=== PATIENT | female | born 1960 | race Caucasian/White ===

== ENCOUNTER 2016-08-23 13:51 | Emergency (ER) | payer OTHER ==
[~2016-08-23] VITALS: Ht 177.8 cm; Wt 117.9 kg
[~2016-08-23 13:51] MED LIST: ANUSOL HC,ANUCO25 MG PR; ATIVAN1 MG PO; Aspirin E.C. PO; BENTYL20 MG PO; BUSPAR10 MG PO; CIPRO500 MG PO; CLONAZEPAM0.5 MG PO; COLACE100 MG PO; FENOFIBRATE160 M1 PO; FLAGYL500 MG PO; HYDROXYZINE PAM25 MG PO; KEFLEX500 MG PO; KLONOPIN1 MG PO; NAPROSYN500 MG PO; NORCO 7.5/321 TABLET PO; OMEPRAZOLE40 M1 PO; PERCOCET 5/31 TABLET PO; PRAVASTATIN SOD40 MG PO; PRAZOSIN HCL2 MG PO; SERTRALINE HCL100 MG PO; SINEQUAN50 MG PO; TRAMADOL HCL50 MG PO; VALIUM5 MG PO; XANAX0.5 MG PO; XANAX1 MG PO; ZOLOFT100 MG PO
[2016-08-23 17:16] LABS: HEMATOCRIT 49.9 % (36.0-46.0); MCH 29.2 PG (29.0-34.0); MCHC 33.3 G/DL (30.0-36.0); MCV 87.7 FL (83-99); MEAN PLAT.VOLUME 10.9 uM^3 (9.5-12.4); PLATELET COUNT 310 K/uL (156-360); RBC DIS.WIDTH-SD 41.7 % (39-53); RED BLOOD COUNT 5.69 M/uL (3.80-5.20)
[2016-08-23 17:25] LABS: CHLORIDE 103 mEq/L (99-109); POTASSIUM 4.7 mEq/L (3.7-5.4); SODIUM 139 mEq/L (136-147)
[2016-08-23 17:27] LABS: GLUCOSE 90 mg/dL (70-99)
[2016-08-23 17:29] LABS: ANION GAP 11 MEQ/L (2-14); TOTAL BILIRUBIN 0.5 mg/dL (0.0-1.0)
[2016-08-23 17:31] LABS: ALKALINE PHOSPHATASE 94 IU/L (3-129); GFR ESTIMATE (CALCULATED) > 59 mL/min/
[2016-08-23 17:32] LABS: UREA NITROGEN (BUN) 19 mg/dL (9-23)
[2016-08-23 17:34] LABS: LIPASE 25 U/L (1.0-51.0)
[2016-08-23 17:38] LABS: TROP-I INTERPRETATION NEGATIVE; TROPONIN-I < 0.01 ng/mL (0.0-0.30)
[2016-08-23] MEDS ORDERED: ATIVAN0.5 MG PO (18:33)
[2016-08-23] MEDS ORDERED: ATARAX,VISTARIL25 MG PO (18:33)
[2016-08-23] MEDS ORDERED: ZANTAC300 MG PO (18:33)
[2016-08-23 18:47] VITALS: BP 140/98
== END 2016-08-23 18:51 | disposition home or self-care (01) ==
LOC: EME 13:51
PROVIDERS: Physician Assistant
DX: R10.13 Epigastric pain (principal); F41.9 Anxiety disorder, unspecified; F17.200 Nicotine dependence, unspecified, uncomplicated; K21.9 Gastro-esophageal reflux disease without esophagitis
CPT/HCPCS: 71020; 80053; 83690; 84484; 85027; 93005; 99281; 99283; Q0177

== ENCOUNTER → 2017-04-12 | Outpatient (CLI) | payer OTHER ==
[~2017-04-12] VITALS: Ht 176.5 cm; Wt 114.3 kg
[~2017-04-12] MED LIST changes: +ATARAX,VISTARIL25 MG PO; +ATIVAN0.5 MG PO; +BRINTELLIX10 MG PO; +MAXALT5 MG PO; +PROTONIX40 MG PO; +ZANTAC300 MG PO; +ZOFRAN8 MG PO
== END | disposition home or self-care (01) ==
LOC: AMB 10:56
PROC: 0DB68ZX Excision of Stomach, Via Natural or Artificial Opening Endoscopic, Diagnostic (ICD-10-PCS; principal; 2017-04-12)
DX: K29.70 Gastritis, unspecified, without bleeding (principal); G89.29 Other chronic pain; R10.13 Epigastric pain; M54.5 Low back pain; F17.200 Nicotine dependence, unspecified, uncomplicated; E78.2 Mixed hyperlipidemia; E66.9 Obesity, unspecified; Z68.37 Body mass index [BMI] 37.0-37.9, adult; Z80.3 Family history of malignant neoplasm of breast; Z82.61 Family history of arthritis; Z80.1 Family history of malignant neoplasm of trachea, bronchus and lung; Z82.0 Family history of epilepsy and other diseases of the nervous system
CPT/HCPCS: 88305; 88342 TC; J2250

== ENCOUNTER → 2017-07-26 | Outpatient (CLI) | payer OTHER ==
[~2017-07-26] VITALS: Ht 176.5 cm; Wt 112.9 kg
== END | disposition home or self-care (01) ==
LOC: AMB 10:20
PROC: 0DBL8ZX Excision of Transverse Colon, Via Natural or Artificial Opening Endoscopic, Diagnostic (ICD-10-PCS; principal; 2017-07-26)
PROC: 0DJ08ZZ Inspection of Upper Intestinal Tract, Via Natural or Artificial Opening Endoscopic (ICD-10-PCS; principal; 2017-07-26)
DX: D12.3 Benign neoplasm of transverse colon (principal); Z86.010 Personal history of colon polyps; R93.3 Abnormal findings on diagnostic imaging of other parts of digestive tract; R10.12 Left upper quadrant pain; F41.8 Other specified anxiety disorders; E66.9 Obesity, unspecified; Z68.36 Body mass index [BMI] 36.0-36.9, adult
CPT/HCPCS: 88305